=== PATIENT | male | born 1965 | race Caucasian/White ===

== ENCOUNTER 2020-06-22 02:49 | Observation (INO) | payer OTHER ==
[2020-06-22] MEDS ORDERED: Sodium Chloride 0.9% 2.5 ML Syringe FLUSH PRN (02:59)
[2020-06-22] MEDS ORDERED: Sodium Chloride 0.9% 10 ML Syringe FLUSH PRN (02:59)
--- NOTE | 2020-06-22 03:02 | EDM.PDOC ---
ED HPI GENERAL MEDICAL PROBLEM - General Chief Complaint: Chest Pain Stated Complaint: TROUBLE BREATHING Time Seen by Provider: 06/22/20 02:52 - History of Present Illness INITIAL COMMENTS - FREE TEXT/NARRATIVE: History of present illness: [] Patient left hip replacement May 23 of this year. The last 2 to 3 days in rehab he is noticed a little bit of discomfort in his left chest. This morning just prior to arrival he was awakened by pain is more sharp and worse with breathing. It is in his left chest. The patient is a non-smoker with no history of thromboembolic disease. After he went home from the hip replacement they ceased his Lovenox prophylaxis but he is on an aspirin daily. Patient has no leg swelling. Review of systems: As per history of present illness and below otherwise all systems reviewed and negative. Past medical history: As per history of present illness and as reviewed below otherwise noncontributory. Surgical history: As per history of present illness and as reviewed below otherwise n oncontributory. Social history: No reported history of drug or alcohol abuse. Family history: As per history of present illness and as reviewed below otherwise noncontributory. Physical exam: Constitutional - well developed, well-nourished and in no acute distress HEENT - normocephalic, no evidence of trauma - external nose and mouth normal - no mass in neck and no JVD - mucosae moist EYES - full EOM, PERRL, no icterus - no evidence of inflammation, injection, or drainage Respiratory - no respiratory distress, equal bilateral expansion, lungs clear to auscultation and no abnormal lung sounds Cardiovascular - Regular Rhythm with S1 and S2 appreciated and no murmur, gallop or rub. GI - abdomen soft without distension or organomegaly - normal bowel sounds - no guard or rebound Musculoskeletal no gross deformity of long bones or joints - no tenderness, swelling or edema Neurologic - Alert and oriented times four - CN II-XII grossly intact - motor sensory and coordination symmetrically normal Psychiatric - appropriate mood and affect with normal thought content Hematologic - No petechiae or purpura - mucosa appropriate color and sclera not pale - normal nail bed color and refill Integument - no rash or evidence of trauma - normal turgor Diagnostics: [] Therapeutics: [] Impression: [] Plan: [] Definitive disposition and diagnosis as appropriate pending reevaluation and review of above. Left Trunk Pain Score (Numeric/FACES): 6 - Related Data Allergies Allergy/AdvReac Type Severity Reaction Status Date / Time Penicillins Allergy Rash Verified 06/22/20 02:53 Home Meds: Home Meds Lisinopril 20 mg PO QAM 01/30/16 [History] metFORMIN [Glucophage] 500 mg PO BIDMEALS 09/17/18 [History] amLODIPine Besylate [Amlodipine Besylate] 5 mg PO DAILY MDD 5mg 06/22/20 [History] hydroCHLOROthiazide [Hydrochlorothiazide] 25 mg PO DAILY MDD 25mg 06/22/20 [History] Past Medical History HEENT History: Reports: Other (See Below) Other HEENT History: uses glasses for driving Cardiovascular History: Reports: Hypertension Respiratory History: Reports: None Gastrointestinal History: Reports: Other (See Below) Other Gastrointestinal History: Gilbert's syndrome Genitourinary History: Reports: None Musculoskeletal History: Reports: Arthritis Other Musculoskeletal History: hx of dislocated shoulder x5 Neurological History: Reports: None Psychiatric History: Reports: None Endocrine/Metabolic History: Reports: Diabetes, Type II, Obesity/BMI 30+ Hematologic History: Reports: None Immunologic History: Reports: None Oncologic (Cancer) History: Reports: None Dermatologic History: Reports: None - Infectious Disease History Infectious Disease History: Reports: Chicken Pox, Measles - Past Surgical History GI Surgical History: Reports: Cholecystectomy, Hernia, Abdominal Other GI Surgeries/Procedures: Ventral Hernia repair Musculoskeletal Surgical History: Reports: Other (See Below) Other Musculoskeletal Surgeries/Procedures:: I&D of abscess on shoulder Social & Family History - Family History Oncologic: Reports: Breast, Ovarian - Caffeine Use Caffeine Use: Reports: Coffee, Soda ED ROS GENERAL - Review of Systems Review Of Systems: Comprehensive ROS is negative, except as noted in HPI. ED EXAM, GENERAL - Physical Exam Exam: See Below Free Text/Narrative:: My physical exam is in the HPI #1 Interpretation EKG Interpretation Comments: EKG done at 0304 sinus rhythm heart rate 92. GA interval 155 QT duration 451. Roscoe -21. QRS had late transition in the precordium. Impression no acute injury Course - Vital Signs Text/Narrative:: 0340 hours chest x-ray is unremarkable. There is poor inspiratory result compared to the earlier chest x-ray in April no significant change. [address] scan was not diagnostic because the arteries were not well opacified. However the radiologist felt like that was because of a subclavian occlusion. The patient has no symptoms in the right arm. Before I move the IV and do the repeat study and give him another contrast burden I am going to perform an ultrasound of the right upper extremity and both lower extremities looking for possible source of PE. 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 Discussed with Dr. Lincoln and she agreed to put the patient in knobs and do a VQ scan later that day. Last Recorded V/S: Last Vital Signs Temp 36.6 C 06/22/20 02:54 Pulse 82 06/22/20 06:09 Resp 19 06/22/20 06:09 BP 130/72 06/22/20 06:09 Pulse Ox 97 06/22/20 06:09 - Orders/Labs/Meds Orders: Active Orders 24 hr Category Date Time Status Admission Status [Patient Status] [ADT] Stat ADT 06/22/20 06:53 Active EKG Documentation Completion [RC] AM Care 06/22/20 02:59 Active Ang Chest [CT] Stat Exams 06/22/20 06:32 Stop Req Lung Vent Perfusion [NM] Stat Exams 06/22/20 06:43 Ordered Venous Doppler Lwr Ext Bi [US] Stat Exams 06/22/20 05:15 Taken Venous Doppler Upr Ext Rt [US] Stat Exams 06/22/20 05:15 Taken CORONAVIRUS COVID-19 MONI [MOLEC] Stat Lab 06/22/20 06:46 Ordered Sodium Chloride 0.9% [Normal Saline] 1,000 ml Med 06/22/20 06:35 Active IV .BOLUS Sodium Chloride 0.9% [Saline Flush] Med 06/22/20 02:59 Active 10 ml FLUSH ASDIRECTED PRN Sodium Chloride 0.9% [Saline Flush] Med 06/22/20 02:59 Active 2.5 ml FLUSH ASDIRECTED PRN Saline Lock Insert [OM.PC] Stat Oth 06/22/20 02:59 Ordered Medication Orders Sodium Chloride (Normal Saline) 1,000 mls @ 999 mls/hr IV .BOLUS ONE Stop: 06/22/20 07:35 Last Admin: 06/22/20 06:37 Dose: 999 mls/hr Documented by: SERGE Sodium Chloride (Sodium Chloride 0.9% 10 Ml Syringe) 10 ml FLUSH ASDIRECTED PRN PRN Reason: Keep Vein Open Last Admin: 06/22/20 03:15 Dose: 10 ml Documented by: SERGE Sodium Chloride (Sodium Chloride 0.9% 2.5 Ml Syringe) 2.5 ml FLUSH ASDIRECTED PRN PRN Reason: Keep Vein Open Last Admin: 06/22/20 03:13 Dose: 2.5 ml Documented by: SERGE Labs: Laboratory Tests 06/22/20 06/22/20 06/22/20 Range/Units 03:10 03:10 03:10 WBC 9.35 (4.0-11.0) K/uL RBC 3.85 L (4.50-5.90) M/uL Hgb 11.7 L (13.0-17.0) g/dL Hct 35.3 L (38.0-50.0) % MCV 91.7 (80.0-98.0) fL MCH 30.4 (27.0-32.0) pg MCHC 33.1 (31.0-37.0) g/dL RDW Std Deviation 43.9 (28.0-62.0) fl RDW Coeff of Tonia 13 (11.0-15.0) % Plt Count 286 (150-400) K/uL MPV 9.80 (7.40-12.00) fL Neut % (Auto) 57.9 (48.0-80.0) % Lymph % (Auto) 28.3 (16.0-40.0) % [place] % (Auto) 10.2 (0.0-15.0) % Eos % (Auto) 3.1 (0.0-7.0) % Baso % (Auto) 0.5 (0.0-1.5) % Neut # (Auto) 5.4 (1.4-5.7) K/uL Lymph # (Auto) 2.7 H (0.6-2.4) K/uL [place] # (Auto) 1.0 H (0.0-0.8) K/uL Eos # (Auto) 0.3 (0.0-0.7) K/uL Baso # (Auto) 0.1 (0.0-0.1) K/uL Nucleated RBC % 0.0 /100WBC Nucleated RBCs # 0 K/uL APTT 24.1 (18.6-31.3) SEC Sodium 138 (136-148) mmol/L Potassium 3.8 (3.5-5.1) mmol/L Chloride 99 (98-107) mmol/L Carbon Dioxide 26.2 (21.0-32.0) mmol/L BUN 17 (7.0-18.0) mg/dL Creatinine 1.4 H (0.8-1.3) mg/dL Est Cr Clr Drug Dosing 61.02 mL/min Estimated GFR (MDRD) 53.0 ml/min Glucose 150 H (74-106) mg/dL Calcium 8.8 (8.5-10.1) mg/dL Total Bilirubin 1.2 H (0.2-1.0) mg/dL AST 28 (15-37) IU/L ALT 56 (14-63) IU/L Alkaline Phosphatase 120 H (46-116) U/L Troponin I < 0.050 (0.000-0.056) ng/mL Total Protein 8.0 (6.4-8.2) g/dL Albumin 3.8 (3.4-5.0) g/dL Globulin 4.2 H (2.6-4.0) g/dL Albumin/Globulin Ratio 0.9 (0.9-1.6) 06/22/20 Range/Units 06:12 WBC (4.0-11.0) K/uL RBC (4.50-5.90) M/uL Hgb (13.0-17.0) g/dL Hct (38.0-50.0) % MCV (80.0-98.0) fL MCH (27.0-32.0) pg MCHC (31.0-37.0) g/dL RDW Std Deviation (28.0-62.0) fl RDW Coeff of Tonia (11.0-15.0) % Plt Count (150-400) K/uL MPV (7.40-12.00) fL Neut % (Auto) (48.0-80.0) % Lymph % (Auto) (16.0-40.0) % [place] % (Auto) (0.0-15.0) % Eos % (Auto) (0.0-7.0) % Baso % (Auto) (0.0-1.5) % Neut # (Auto) (1.4-5.7) K/uL Lymph # (Auto) (0.6-2.4) K/uL [place] # (Auto) (0.0-0.8) K/uL Eos # (Auto) (0.0-0.7) K/uL Baso # (Auto) (0.0-0.1) K/uL Nucleated RBC % /100WBC Nucleated RBCs # K/uL APTT (18.6-31.3) SEC Sodium (136-148) mmol/L Potassium (3.5-5.1) mmol/L Chloride (98-107) mmol/L Carbon Dioxide (21.0-32.0) mmol/L BUN (7.0-18.0) mg/dL Creatinine (0.8-1.3) mg/dL Est Cr Clr Drug Dosing mL/min Estimated GFR (MDRD) ml/min Glucose (74-106) mg/dL Calcium (8.5-10.1) mg/dL Total Bilirubin (0.2-1.0) mg/dL AST (15-37) IU/L ALT (14-63) IU/L Alkaline Phosphatase (46-116) U/L Troponin I < 0.050 (0.000-0.056) ng/mL Total Protein (6.4-8.2) g/dL Albumin (3.4-5.0) g/dL Globulin (2.6-4.0) g/dL Albumin/Globulin Ratio (0.9-1.6) Meds: Medications Generic Name Dose Route Start Last Admin Trade Name Freq PRN Reason Stop Dose Admin Sodium Chloride 1,000 mls @ 999 mls/hr 06/22/20 06:35 06/22/20 06:37 Normal Saline IV 06/22/20 07:35 999 mls/hr .BOLUS ONE Administration Sodium Chloride 10 ml 06/22/20 02:59 06/22/20 03:15 Sodium Chloride 0.9% 10 Ml Syringe FLUSH 10 ml ASDIRECTED PRN Administration Keep Vein Open Sodium Chloride 2.5 ml 06/22/20 02:59 06/22/20 03:13 Sodium Chloride 0.9% 2.5 Ml Syringe FLUSH 2.5 ml ASDIRECTED PRN Administration Keep Vein Open Discontinued Medications Generic Name Dose Route Start Last Admin Trade Name Freq PRN Reason Stop Dose Admin Enoxaparin Sodium 40 mg 06/22/20 06:47 Enoxaparin 40 Mg/0.4 Ml Syringe SUBCUT 06/22/20 06:48 ONETIME ONE Iopamidol 100 ml 06/22/20 04:16 06/22/20 04:27 Iopamidol 755 Mg/Ml 100 Ml Bottle IVPUSH 06/22/20 04:17 100 ml ONETIME ONE Administration Ketorolac Tromethamine 15 mg 06/22/20 03:44 06/22/20 03:55 Ketorolac 30 Mg/Ml Sdv IVPUSH 06/22/20 03:45 15 mg ONETIME ONE Administration Departure - Departure Time of Disposition: 06:55 Disposition: Refer to Observation Condition: Good Clinical Impression: Chest pain - Discharge Information Referrals: Arnie Farfan MD [Primary Care Provider] - Forms: ED Department Discharge Sepsis Event Note (ED) - Evaluation Sepsis Screening Result: No Definite Risk - Focused Exam Vital Signs: Vital Signs Temp Pulse Resp BP Pulse Ox 06/22/20 06:09 82 19 130/72 97 06/22/20 04:58 86 17 126/72 96 06/22/20 04:26 90 19 136/75 97 06/22/20 03:36 88 18 129/76 96 06/22/20 02:54 36.6 C 100 20 147/80 H 98 - My Orders Last 24 Hours: My Active Orders 06/22/20 02:59 EKG Documentation Completion [RC] AM Sodium Chloride 0.9% [Saline Flush] 10 ml FLUSH ASDIRECTED PRN Sodium Chloride 0.9% [Saline Flush] 2.5 ml FLUSH ASDIRECTED PRN Saline Lock Insert [OM.PC] Stat 06/22/20 05:15 Venous Doppler Lwr Ext Bi [US] Stat Venous Doppler Upr Ext Rt [US] Stat 06/22/20 06:32 Ang Chest [CT] Stat 06/22/20 06:35 Sodium Chloride 0.9% [Normal Saline] 1,000 ml IV .BOLUS 06/22/20 06:43 Lung Vent Perfusion [NM] Stat 06/22/20 06:46 CORONAVIRUS COVID-19 MONI [MOLEC] Stat 06/22/20 06:53 Admission Status [Patient Status] [ADT] Stat - Assessment/Plan Last 24 Hours: My Active Orders 06/22/20 02:59 EKG Documentation Completion [RC] AM Sodium Chloride 0.9% [Saline Flush] 10 ml FLUSH ASDIRECTED PRN Sodium Chloride 0.9% [Saline Flush] 2.5 ml FLUSH ASDIRECTED PRN Saline Lock Insert [OM.PC] Stat 06/22/20 05:15 Venous Doppler Lwr Ext Bi [US] Stat Venous Doppler Upr Ext Rt [US] Stat 06/22/20 06:32 Ang Chest [CT] Stat 06/22/20 06:35 Sodium Chloride 0.9% [Normal Saline] 1,000 ml IV .BOLUS 06/22/20 06:43 Lung Vent Perfusion [NM] Stat 06/22/20 06:46 CORONAVIRUS COVID-19 MONI [MOLEC] Stat 06/22/20 06:53 Admission Status [Patient Status] [ADT] Stat
[2020-06-22 03:42] LABS: BLOOD UREA NITROGEN,BUN 17 mg/dL (7.0-18.0); CARBON DIOXIDE,CO2 26.2 mmol/L (21.0-32.0); CHLORIDE,CL 99 mmol/L (98-107); GLUCOSE RANDOM 150 mg/dL (74-106); POTASSIUM,K 3.8 mmol/L (3.5-5.1); SODIUM,NA 138 mmol/L (136-148)
[2020-06-22] MEDS ORDERED: Ketorolac 30 MG/ML SDV IVPUSH ONE (03:44)
--- NOTE | 2020-06-22 04:00 | CR ---
Indication: Chest pain Technique: Chest 1 view Comparison: Chest x-ray 04/19/2020 Findings/Impression: Cardiovascular and mediastinum: Heart size and vasculature are normal in caliber and appearance. Lungs and pleural space: Lungs are clear. No sign of infiltrate or mass. No sign of pleural effusion. No pneumothorax. Bones and soft tissues: Left glenohumeral osteoarthritis. Dictated by Robinson Guerrero MD @ 06/22/2020 3:59:[address] Robinson Guerrero @ Jun 22 2020 3:59AM
[2020-06-22] MEDS ORDERED: Iopamidol 755 Mg/ML 100 ML Bottle IVPUSH ONE (04:16)
--- NOTE | 2020-06-22 05:08 | CT ---
INDICATION: Chest pain TECHNIQUE: CT chest PE was acquired with 75 cc Isovue 370 intravenous contrast. COMPARISON: None. FINDINGS: Heart and vasculature: Nondiagnostic examination secondary to inadequate opacification of the pulmonary artery. Note is made of an injection in the right arm with high-grade right subclavian stenosis versus occlusion with right chest wall collaterals. No thoracic aortic aneurysm. No pericardial effusion. Lungs and pleural: Trace left pleural effusion. Mild dependent atelectasis left lower lobe. Minimal areas of discoid atelectasis. Lymph nodes/mediastinum: No mediastinal, hilar, or axillary adenopathy. Chest wall: No masses. Upper abdomen: Status post cholecystectomy. Bones: Left glenohumeral osteoarthritis. Diffuse idiopathic skeletal hyperostosis. IMPRESSION: 1. Nondiagnostic evaluation for the detection of pulmonary emboli. This is secondary to inadequate opacification of the pulmonary artery. Of note, injection was performed in the right arm with a high-grade stenosis versus occlusion of the right subclavian vein which likely contributes to inadequate opacification. If a repeat study is considered, injection should be performed through the left arm. 2. Trace left pleural effusion with dependent atelectasis. Please note that all CT scans at this facility use dose modulation, iterative reconstruction, and/or weight-based dosing when appropriate to reduce radiation dose to as low as reasonably achievable. Dictated by Robinson Guerrero MD @ 06/22/2020 5:07:[address] Robinson Guerrero @ Jun 22 2020 5:07AM
[2020-06-22] MEDS ORDERED: Sodium Chloride 0.9% 1,000 ML IV ONE (06:35)
[2020-06-22] MEDS ORDERED: Enoxaparin 40 MG/0.4 ML Syringe SUBCUT ONE (06:47)
--- NOTE | 2020-06-22 07:15 | US ---
HISTORY: Possible abnormality of the right subclavian vein on chest CT. Recent hip surgery. TECHNIQUE: Ultrasound of the right upper extremity deep veins using luciano-scale, color Doppler, and spectral Doppler. COMPARISON: None. FINDINGS: Visualized portion of the right subclavian vein is patent. Axillary vein is patent and compressible. Brachial vein is patent incompressible. Radial vein is patent and compressible. Cephalic vein is patent and compressible. IMPRESSION: No right upper extremity DVT. Visualized right subclavian vein is patent. Dictated by Melo Rodriguez MD @ 06/22/2020 7:12:[address] Melo Rodriguez @ Jun 22 2020 7:12AM
--- NOTE | 2020-06-22 07:17 | US ---
HISTORY: Chest pain. Recent hip surgery. Nondiagnostic chest CT. TECHNIQUE: Ultrasound of the right and left lower extremity deep veins using luciaon-scale, color Doppler, and spectral Doppler. COMPARISON: None. FINDINGS: Right: Common femoral, femoral, and popliteal veins are patent and compressible with normal response to augmentation. Anterior tibial vein and posterior tibial vein are patent. - Left: Common femoral, femoral, and popliteal veins are patent and compressible with normal response to augmentation. Anterior tibial vein and posterior tibial vein are patent. IMPRESSION: No right or left lower extremity DVT. Dictated by Melo Rodriguez MD @ 06/22/2020 7:14:[address] Melo Rodriguez @ Jun 22 2020 7:14AM
[2020-06-22] MEDS ORDERED: Glucagon,Human Recombinant 1 MG Vial IM PRN (09:29)
[2020-06-22] MEDS ORDERED: 50% Dextrose in Water 50 ML Syringe IV PRN (09:29)
--- NOTE | 2020-06-22 09:30 | PCM.HP.2 ---
<Elliott Velez - Last Filed: 06/22/20 12:16> H&P History of Present Illness - General Date of Service: 06/22/20 Admit Problem/Dx: Admission Diagnosis/Problem Admission Diagnosis/Problem Chest pain Source of Information: Patient History Limitations: Reports: No Limitations - History of Present Illness Initial Comments - Free Text/Narative: Patient is a 54 male with significant past medical history of morbid obesity, hypertension, type 2 diabetes and is status post hip total replacement 4 weeks prior presenting to the ED for 2 to 3 days of left-sided chest discomfort. Endorsed to the ER physician pain waking up in the middle the night, worse with breathing and is exclusively in his left chest. Patient is is a non-smoker and does not have a history of thromboembolic disease. Patient has been in physical rehab for his left total hip replacement. Was discontinued on his Lovenox but is still currently on aspirin daily. ED course: Chest x-ray unremarkable., atelectasis noted in left lower lungs CT scan chest with angiography: Arteries not well opacified nondiagnostic secondary to subclavian occlusion. Concerns about repeat contrast brought up secondary to BREE of 1.4. Was advised to possibly have a VQ scan. Initial troponin negative. EKG: Normal sinus rhythm. Venous Doppler study: No right upper extremity DVT. Visualized right subclavian vein is patent Venous Doppler study lower extremity: No acute DVT is appreciated. Patient given a dose of Toradol for pain control and IV fluids. Admitted to observation. Bedside: Endorses similar story as above. Mentions discomfort is exclusively in the left side of the chest. Has been compliant with medication at home. Has not been using his incentive spirometry as recommended by orthopedics.. She currently denies any dyspnea, shortness of breath at rest fevers, chills. Left Trunk Pain Score (Numeric/FACES): 6 - Related Data Allergies/Adverse Reactions: Allergies Allergy/AdvReac Type Severity Reaction Status Date / Time Penicillins Allergy Rash Verified 06/22/20 09:21 Home Medications: Home Meds Lisinopril 40 mg PO QAM 01/30/16 [History] Ezetimibe 10 mg PO DAILY 06/22/20 [History] amLODIPine [Norvasc] 5 mg PO DAILY 06/22/20 [History] hydroCHLOROthiazide [Hydrochlorothiazide] 25 mg PO DAILY 06/22/20 [History] Past Medical History HEENT History: Reports: Other (See Below) Other HEENT History: uses glasses for driving Cardiovascular History: Reports: Hypertension Respiratory History: Reports: None Gastrointestinal History: Reports: Other (See Below) Other Gastrointestinal History: Gilbert's syndrome Genitourinary History: Reports: None Musculoskeletal History: Reports: Arthritis Other Musculoskeletal History: hx of dislocated shoulder x5 Neurological History: Reports: None Psychiatric History: Reports: None Endocrine/Metabolic History: Reports: Diabetes, Type II, Obesity/BMI 30+ Hematologic History: Reports: None Immunologic History: Reports: None Oncologic (Cancer) History: Reports: None Dermatologic History: Reports: None - Infectious Disease History Infectious Disease History: Reports: Chicken Pox, Measles - Past Surgical History Head Surgeries/Procedures: Reports: None HEENT Surgical History: Reports: None Cardiovascular Surgical History: Reports: None Respiratory Surgical History: Reports: None GI Surgical History: Reports: Cholecystectomy, Hernia, Abdominal Other GI Surgeries/Procedures: Ventral Hernia repair Male Surgical History: Reports: None Endocrine Surgical History: Reports: None Neurological Surgical History: Reports: None Musculoskeletal Surgical History: Reports: Hip Replacement, Other (See Below) Other Musculoskeletal Surgeries/Procedures:: I&D of abscess on shoulder Oncologic Surgical History: Reports: None Dermatological Surgical History: Reports: None Social & Family History - Family History Oncologic: Reports: Breast, Ovarian - Tobacco Use Tobacco Use Status *Q: Never Tobacco User Second Hand Smoke Exposure: No - Caffeine Use Caffeine Use: Reports: Coffee - Recreational Drug Use Recreational Drug Use: No H&P Review of Systems - Review of Systems: Review Of Systems: See Below General: Denies: Fever, Chills, Malaise HEENT: Reports: No Symptoms Pulmonary: Reports: No Symptoms Cardiovascular: Reports: Chest Pain, Dyspnea on Exertion. Denies: Edema, Lightheadedness Gastrointestinal: Reports: No Symptoms Genitourinary: Reports: No Symptoms Musculoskeletal: Denies: Joint Pain Skin: Reports: No Symptoms Neurological: Reports: No Symptoms Hematologic/Lymphatic: Reports: No Symptoms Exam - Exam Exam: See Below - Vital Signs Vital Signs: Last Vital Signs Temp 97.6 F 06/22/20 09:06 Pulse 85 06/22/20 09:06 Resp 16 06/22/20 09:06 BP 128/76 06/22/20 09:06 Pulse Ox 99 06/22/20 09:06 Weight: 144.696 kg - Exam Quality Assessment: No: Supplemental Oxygen General: Alert, Oriented HEENT: EACs Clear, EOMI Neck: Supple, Trachea Midline Lungs: Clear to Auscultation, Normal Respiratory Effort Cardiovascular: Regular Rate, Regular Rhythm GI/Abdominal Exam: Soft, Non-Tender Extremities: Normal Inspection Neurological: Cranial Nerves Intact Neuro Extensive - Mental Status: Alert, Normal Mood/Affect Psychiatric: Alert Physical Exam Comments:: obese - Patient Data Lab Results Last 24 hrs: Laboratory Results - last 24 hr 06/22/20 06/22/20 06/22/20 Range/Units 03:10 03:10 03:10 WBC 9.35 (4.0-11.0) K/uL RBC 3.85 L (4.50-5.90) M/uL Hgb 11.7 L (13.0-17.0) g/dL Hct 35.3 L (38.0-50.0) % MCV 91.7 (80.0-98.0) fL MCH 30.4 (27.0-32.0) pg MCHC 33.1 (31.0-37.0) g/dL RDW Std Deviation 43.9 (28.0-62.0) fl RDW Coeff of Tonia 13 (11.0-15.0) % Plt Count 286 (150-400) K/uL MPV 9.80 (7.40-12.00) fL Neut % (Auto) 57.9 (48.0-80.0) % Lymph % (Auto) 28.3 (16.0-40.0) % Isabela % (Auto) 10.2 (0.0-15.0) % Eos % (Auto) 3.1 (0.0-7.0) % Baso % (Auto) 0.5 (0.0-1.5) % Neut # (Auto) 5.4 (1.4-5.7) K/uL Lymph # (Auto) 2.7 H (0.6-2.4) K/uL Isabela # (Auto) 1.0 H (0.0-0.8) K/uL Eos # (Auto) 0.3 (0.0-0.7) K/uL Baso # (Auto) 0.1 (0.0-0.1) K/uL Nucleated RBC % 0.0 /100WBC Nucleated RBCs # 0 K/uL APTT 24.1 (18.6-31.3) SEC Sodium 138 (136-148) mmol/L Potassium 3.8 (3.5-5.1) mmol/L Chloride 99 (98-107) mmol/L Carbon Dioxide 26.2 (21.0-32.0) mmol/L BUN 17 (7.0-18.0) mg/dL Creatinine 1.4 H (0.8-1.3) mg/dL Est Cr Clr Drug Dosing 61.02 mL/min Estimated GFR (MDRD) 53.0 ml/min Glucose 150 H (74-106) mg/dL Calcium 8.8 (8.5-10.1) mg/dL Total Bilirubin 1.2 H (0.2-1.0) mg/dL AST 28 (15-37) IU/L ALT 56 (14-63) IU/L Alkaline Phosphatase 120 H (46-116) U/L Troponin I < 0.050 (0.000-0.056) ng/mL Total Protein 8.0 (6.4-8.2) g/dL Albumin 3.8 (3.4-5.0) g/dL Globulin 4.2 H (2.6-4.0) g/dL Albumin/Globulin Ratio 0.9 (0.9-1.6) SARS-CoV-2 RNA (MONI) (NEGATIVE) 06/22/20 06/22/20 Range/Units 06:12 06:50 WBC (4.0-11.0) K/uL RBC (4.50-5.90) M/uL Hgb (13.0-17.0) g/dL Hct (38.0-50.0) % MCV (80.0-98.0) fL MCH (27.0-32.0) pg MCHC (31.0-37.0) g/dL RDW Std Deviation (28.0-62.0) fl RDW Coeff of Tonia (11.0-15.0) % Plt Count (150-400) K/uL MPV (7.40-12.00) fL Neut % (Auto) (48.0-80.0) % Lymph % (Auto) (16.0-40.0) % Isabela % (Auto) (0.0-15.0) % Eos % (Auto) (0.0-7.0) % Baso % (Auto) (0.0-1.5) % Neut # (Auto) (1.4-5.7) K/uL Lymph # (Auto) (0.6-2.4) K/uL Isabela # (Auto) (0.0-0.8) K/uL Eos # (Auto) (0.0-0.7) K/uL Baso # (Auto) (0.0-0.1) K/uL Nucleated RBC % /100WBC Nucleated RBCs # K/uL APTT (18.6-31.3) SEC Sodium (136-148) mmol/L Potassium (3.5-5.1) mmol/L Chloride (98-107) mmol/L Carbon Dioxide (21.0-32.0) mmol/L BUN (7.0-18.0) mg/dL Creatinine (0.8-1.3) mg/dL Est Cr Clr Drug Dosing mL/min Estimated GFR (MDRD) ml/min Glucose (74-106) mg/dL Calcium (8.5-10.1) mg/dL Total Bilirubin (0.2-1.0) mg/dL AST (15-37) IU/L ALT (14-63) IU/L Alkaline Phosphatase (46-116) U/L Troponin I < 0.050 (0.000-0.056) ng/mL Total Protein (6.4-8.2) g/dL Albumin (3.4-5.0) g/dL Globulin (2.6-4.0) g/dL Albumin/Globulin Ratio (0.9-1.6) SARS-CoV-2 RNA (MONI) NEGATIVE (NEGATIVE) Result Diagrams: 06/22/20 03:10 06/22/20 03:10 Sepsis Event Note - Evaluation Sepsis Screening Result: No Definite Risk - Focused Exam Vital Signs: Vital Signs Temp Pulse Pulse Resp BP Pulse Ox 06/22/20 09:06 97.6 F 85 16 128/76 99 06/22/20 08:27 82 16 133/81 97 06/22/20 07:54 88 16 128/82 96 06/22/20 07:23 81 16 129/72 95 06/22/20 06:09 82 19 130/72 97 06/22/20 04:58 86 17 126/72 96 06/22/20 04:26 90 19 136/75 97 06/22/20 03:36 88 18 129/76 96 06/22/20 02:54 97.8 F 100 20 147/80 H 98 - Problem List (1) Diabetes SNOMED Code(s): 17036534 ICD Code: E11.9 - TYPE 2 DIABETES MELLITUS WITHOUT COMPLICATIONS Status: Ac paulo (2) Chest pain SNOMED Code(s): 84565131 ICD Code: R07.9 - CHEST PAIN, UNSPECIFIED Status: Acute Problem List Initiated/Reviewed/Updated: Yes Orders Last 24hrs: Active Orders 24 hr Category Date Time Status Admission Status [Patient Status] [ADT] Stat ADT 06/22/20 06:53 Active Blood Glucose Check, Bedside [RC] TIDMEALS Care 06/22/20 09:27 Ordered EKG Documentation Completion [RC] AM Care 06/22/20 02:59 Active Oxygen Therapy [RC] PRN Care 06/22/20 09:27 Ordered VTE/DVT Education [RC] PER UNIT ROUTINE Care 06/22/20 09:27 Ordered Citizen Of [place] [employer] Diet [DIET] Diet 06/22/20 Lunch Ordered Lung Vent Perfusion [NM] Stat Exams 06/22/20 06:43 Ordered Dextrose 50% in Water Med 06/22/20 09:29 Ordered 50 ml IV ASDIRECTED PRN Ezetimibe [Zetia] Med 06/23/20 09:00 Ordered 10 mg PO DAILY Glucagon,Human Recombinant [GlucaGen] Med 06/22/20 09:29 Ordered 1 mg IM ASDIRECTED PRN Insulin Aspart [NovoLOG] Med 06/22/20 11:30 Ordered See Protocol SUBCUT TIDAC Sodium Chloride 0.9% [Saline Flush] Med 06/22/20 02:59 Active 10 ml FLUSH ASDIRECTED PRN Sodium Chloride 0.9% [Saline Flush] Med 06/22/20 02:59 Active 2.5 ml FLUSH ASDIRECTED PRN amLODIPine [Norvasc] Med 06/23/20 09:00 Ordered 5 mg PO DAILY Saline Lock Insert [OM.PC] Stat Oth 06/22/20 02:59 Ordered Resuscitation Status Routine Resus Stat 06/22/20 09:27 Ordered Medication Orders Dextrose/Water (50% Dextrose In Water 50 Ml Syringe) 50 ml IV ASDIRECTED PRN PRN Reason: Hypoglycemia Glucagon (Glucagon,Human Recombinant 1 Mg Vial) 1 mg IM ASDIRECTED PRN PRN Reason: Hypoglycemia Insulin Aspart (Insulin Aspart 100 Units/Ml 3 Ml Pen) 0 unit SUBCUT TIDAC TIGIST; Protocol Sodium Chloride (Sodium Chloride 0.9% 10 Ml Syringe) 10 ml FLUSH ASDIRECTED PRN PRN Reason: Keep Vein Open Last Admin: 06/22/20 03:15 Dose: 10 ml Documented by: SERGE Sodium Chloride (Sodium Chloride 0.9% 2.5 Ml Syringe) 2.5 ml FLUSH ASDIRECTED PRN PRN Reason: Keep Vein Open Last Admin: 06/22/20 03:13 Dose: 2.5 ml Documented by: SERGE Assessment/Plan Comment:: Assessment: 1. Chest pain/ACS rule out, 2. Chest pain status post left total hip arthroplasty; evaluate for PE 3. Past medical history: Hypertension, diabetes, hyperlipidemia, morbid obesity Plan Admit to observation. Full code. I's and O's per routine vitals per routine 1. Chest pain/ACS rule out: Troponin x3 -.; EKG within normal limits Labs otherwise unremarkable CTA unfortunately was nondiagnostic; VQ scan will be ordered this afternoon; if negative may consider discharge; continue to monitor. Patient is on room air: saturating well. Continue ASA ; received Lovenox in ED 2. BREE: Avoid nephrotoxic medications/IV contrast; continue to monitor recheck in outpatient setting; if VQ scan nondiagnostic or high probability may consider repeat CTAs post fluid resuscitation Advised to hold Metformin till Saturday due to BREE and concners for L.acidosis; pt understood and agreed; SSI while inpatient 3. Past medical history: Diabetes; sliding scale insulin plus 3 times daily Accu-Cheks Hypertension: Hold lisinopril until BREE resolved; monitor vitals Continue other home medications <Aida Lincoln - Last Filed: 06/23/20 21:36> H&P History of Present Illness - General Admit Problem/Dx: Admission Diagnosis/Problem Admission Diagnosis/Problem Chest pain Exam - Vital Signs Vital Signs: Last Vital Signs Temp 35.8 C L 06/22/20 14:00 Pulse 80 06/22/20 14:00 Resp 16 06/22/20 14:00 BP 121/70 06/22/20 14:00 Pulse Ox 96 06/22/20 14:00 - Patient Data Result Diagrams: 06/22/20 03:10 06/22/20 03:10 Assessment/Plan Comment:: I have seen and evaluated the patient and agree with the residents note unless specified in my note
[2020-06-22] MEDS ORDERED: Insulin Aspart 100 Units/ML 3 ML Pen SUBCUT SCH (11:30)
--- NOTE | 2020-06-22 13:27 | NM ---
INDICATION: Hip surgery 4 weeks ago. Left-sided chest pain with deep breathing. No history of pulmonary emboli. TECHNIQUE: 5.3 mCi Tc-99m labeled MAA. Only perfusion images were acquired. Ventilatory images were not acquired. COMPARISON: Correlation is made with a venous ultrasound evaluation of lower extremity veins and right upper extremity venous ultrasound. Correlation is made with a CT angiogram June 22, 2020 (nondiagnostic secondary to poor opacification of the pulmonary showed tree). Correlation is made with a chest x-ray June 22, 2020. FINDINGS: Perfusion images demonstrate mildly decreased activity in the upper lobes likely soft tissue overlay bilaterally. Peripheral defect right mid lung laterally. Non segmental defect mid left lung likely related to the fissure. IMPRESSION : Although not completely normal, these perfusion images are not convincing for pulmonary emboli although please note the lack of a ventilatory study may decrease the specificity of the study. The clinical history indicates left-sided chest pain. There is no convincing evidence for left-sided pulmonary emboli. Dictated by Juanjo Barillas MD @ 06/22/2020 1:27:[address] Juanjo Barillas @ Jun 22 2020 1:27PM
[2020-06-23 07:21] VITALS: BP 121/70; PULSE 80
[2020-06-23] MEDS ORDERED: amLODIPine 5 MG Tab PO SCH (09:00)
[2020-06-23] MEDS ORDERED: Ezetimibe 10 MG Tab PO SCH (09:00)
== END 2020-06-22 14:45 | disposition home or self-care (01) ==
LOC: MW.ED 02:49 → MW.MS 06:53
PROVIDERS: ADMIT Student in an Organized Health Care Education/Training Program; ATTEND Student in an Organized Health Care Education/Training Program
DX: R07.89 Other chest pain (principal); E11.9 Type 2 diabetes mellitus without complications; I10 Essential (primary) hypertension; E78.5 Hyperlipidemia, unspecified; N17.9 Acute kidney failure, unspecified; E66.01 Morbid (severe) obesity due to excess calories; Z68.42 Body mass index [BMI] 45.0-49.9, adult; Z88.0 Allergy status to penicillin; Z79.899 Other long term (current) drug therapy; Z79.4 Long term (current) use of insulin; Z20.822 Contact with and (suspected) exposure to COVID-19; Z98.890 Other specified postprocedural states
CPT/HCPCS: 36415; 71045; 71275; 78580; 80053; 82947; 84484; 85025; 85730; 87635; 93005; 93970; 93971; 96372; 96374; 99285; A9540; G0378; J1650; J1885; J7030; Q9967; U0002

== ENCOUNTER 2020-11-24 20:16 | Emergency (ER) | payer BC ==
--- NOTE | 2020-11-25 00:10 | CR ---
INDICATION: COVID, shortness of breath TECHNIQUE: Chest one view COMPARISON: Chest x-ray 06/22/2020 FINDINGS: The heart is normal in size. The pulmonary vasculature is within normal limits. The lungs are clear without focal consolidation, pleural effusion or pneumothorax. The bones are unremarkable. IMPRESSION: No acute process. Dictated by Nilsa Blair MD @ 11/25/2020 12:10:20 AM (Electronically Signed)
--- NOTE | 2020-11-25 00:18 | EDM.PDOC ---
ED HPI GENERAL MEDICAL PROBLEM - General Chief Complaint: Respiratory Problem Stated Complaint: COVID SOB Time Seen by Provider: 11/24/20 23:11 - History of Present Illness INITIAL COMMENTS - FREE TEXT/NARRATIVE: HISTORY AND PHYSICAL: History of present illness: Is a 54-year-old gentleman with a history significant hypertension diabetes who presents ER today secondary to concerns about a low oxygen level at home with his pulse oximeter of 88%. Patient was diagnosed with coronavirus. Patient reports this is his second diagnosis of coronavirus and he has had a coronavirus vaccine x2 with [employer]. Patient also reports that he recently received the coronavirus antibody. Patient denies any recent fevers. Patient reports he has had cough and congestion. Patient has any vomiting or diarrhea. Patient has any dysuria, frequency, urgency, chest pain, abdominal pain. Patient reports that while he is sitting he is not short of breath however any kind of exertion or ambulation creates shortness of breath. Patient has any calf tenderness or swelling. Patient has any history of liver, lung, kidney problems. Patient has any history of CAD or heart disease. Review of systems: As per history of present illness and below otherwise all systems reviewed and negative. Past medical history: As per history of present illness and as reviewed below otherwise noncontributory. Surgical history: As per history of present illness and as reviewed below otherwise noncontributory. Social history: No reported history of drug abuse. Family history: As per history of present illness and as reviewed below otherwise non contributory. Physical exam: This patient was seen and evaluated during the 2019 SARS-CoV-2 novel coronavirus pandemic period. Community viral transmission is ongoing at time of this encounter and the emergency department is operating under pandemic response procedures. Constitutional: Patient is oriented to person, place, and time. Appears well- developed and well-nourished. No distress. HEENT: Moist mucous membranes Head: Normocephalic and atraumatic Eyes: Right eye exhibits no discharge. Left eye exhibits no discharge. No scleral icterus Neck: Normal range of motion. No tracheal deviation present. Cardiovascular: Normal rate and regular rhythm. Pulmonary: Effort normal, no respiratory distress. No wheezing rales or rhonchi Abdominal: No distention Musculoskeletal: Normal range of motion. No calf tenderness. No Homans' sign. Neurologic: Alert and oriented to person, place and time. Skin: [place], warm and dry. Psychiatric: Normal mood and affect. Behavior is normal. Judgment and thought content normal. Nursing note and vital signs have been reviewed Diagnostics: Chest Xray: Normal cardiac silhouette No infiltrates or effusions identified. No PTX No evidence of acute bony fracture. As interpreted by ER MD: Joe Pulse ox: 92 to 96% on room air Therapeutics: [] Assessment and plan: 54-year-old gentleman who presents ER today secondary to low oxygen reading at home with his pulse oximeter. Patient has a recent diagnosis of coronavirus. Patient is clinically hemodynamically stable here in the ED. Patient's chest x- ray is unremarkable and his oxygen level is 92 to 96% on room air. Patient is stable for discharge home at this time with instructions to continue the current plan of care and to continue monitoring his oxygen level as a been doing and return immediately with any concerns regarding low oxygen levels or increasing shortness of breath. Reassessment at the time of disposition demonstrates that the patient is in no acute distress. The patient has remained stable throughout the entire ED visit and is without objective evidence for acute process requiring urgent intervention or hospitalization. The patient is stable for discharge, counseling is provided as documented above, discussed symptomatic treatment and specific conditions for return. I have spoken with the patient/caregiver and discussed todays findings, in add ition to providing specific details for the plan of care. Questions are answered and there is agreement with the plan. Definitive disposition and diagnosis as appropriate pending reevaluation and rev iew of above. - Related Data Allergies Allergy/AdvReac Type Severity Reaction Status Date / Time Penicillins Allergy Rash Verified 11/24/20 22:23 Home Meds: Home Meds Lisinopril 40 mg PO QAM 01/30/16 [History] Ezetimibe 10 mg PO DAILY 06/22/20 [History] amLODIPine [Norvasc] 5 mg PO DAILY 06/22/20 [History] hydroCHLOROthiazide [Hydrochlorothiazide] 25 mg PO DAILY 06/22/20 [History] metFORMIN HCl [Metformin ER Gastric] 1,000 mg PO 11/24/20 [History] Past Medical History HEENT History: Reports: Impaired Vision, Other (See Below) Other HEENT History: uses glasses for driving Cardiovascular History: Reports: Hypertension Respiratory History: Reports: None Gastrointestinal History: Reports: Other (See Below) Other Gastrointestinal History: Gilbert's syndrome Genitourinary History: Reports: None Musculoskeletal History: Reports: Arthritis Other Musculoskeletal History: hx of dislocated shoulder x5 Neurological History: Reports: None Psychiatric History: Reports: None Endocrine/Metabolic History: Reports: Diabetes, Type II, Obesity/BMI 30+ Hematologic History: Reports: None Immunologic History: Reports: None Oncologic (Cancer) History: Reports: None Dermatologic History: Reports: None - Infectious Disease History Infectious Disease History: Reports: Chicken Pox, Measles - Past Surgical History Head Surgeries/Procedures: Reports: None HEENT Surgical History: Reports: None Cardiovascular Surgical History: Reports: None Respiratory Surgical History: Reports: None GI Surgical History: Reports: Cholecystectomy, Hernia, Abdominal Other GI Surgeries/Procedures: Ventral Hernia repair Male Surgical History: Reports: None Endocrine Surgical History: Reports: None Neurological Surgical History: Reports: None Musculoskeletal Surgical History: Reports: Hip Replacement, Other (See Below) Other Musculoskeletal Surgeries/Procedures:: I&D of abscess on shoulder Oncologic Surgical History: Reports: None Dermatological Surgical History: Reports: None Social & Family History - Family History Oncologic: Reports: Breast, Ovarian - Tobacco Use Tobacco Use Status *Q: Never Tobacco User - Caffeine Use Caffeine Use: Reports: Coffee - Recreational Drug Use Recreational Drug Use: No ED ROS GENERAL - Review of Systems Review Of Systems: See Below ED EXAM, GENERAL - Physical Exam Exam: See Below Course - Vital Signs Last Recorded V/S: Last Vital Signs Temp 96.8 F L 11/24/20 22:17 Pulse 112 H 11/24/20 22:47 Resp 16 11/24/20 22:47 BP 123/88 11/24/20 22:47 Pulse Ox 95 11/24/20 22:47 Departure - Departure Time of Disposition: 00:17 Disposition: Home, Self-Care 01 Clinical Impression: COVID-19 virus infection - Discharge Information Instructions: What You Should Know About COVID-19 to Protect Yourself and Others - CDC, 10 Things You Can Do to Manage Your COVID-19 Symptoms at Home - CDC (08/26/2020) Referrals: Arnie Farfan MD [Primary Care Provider] - Additional Instructions: Your seen and evaluated in the ER today secondary to low oxygen level reading at home while you are Covid positive. Fortunately, your oxygen level here is remain between 90 to 96% on room air. Please continue current plan of care and return the ER immediately if any worsening shortness of breath and low oxygen level is noted at home. 1. Your COVID-19 screening is positive. That means you do have the coronavirus and you are considered contagious. Your vital signs and oxygen saturation are well enough that you were able to monitor your symptoms at home. Continue to monitor for trouble breathing, new confusion or inability to arouse, bluish lips or face or any of the other symptoms we discussed -if this occurs please return to the emergency room. 2. Please self quarantine over the next 10 days. Inform any persons that you have been in contact with since you started becoming symptomatic that you have tested positive; they should be made aware and take the appropriate steps as needed. 3. You can take NyQuil during the evening to help get a restful night sleep. May alternate Tylenol and ibuprofen as needed for pain and fever management. 4. The [facility] department will be calling you and following up with you. The [place] COVID 19 Hotline phone number , They are open Saturday - Saturday 7am - 7pm. Follow up with your primary care provider for re-evaluation and re-testing after the 10 day quarantine and discuss when you should be seen. The following information is given to patients seen in the emergency department who are being discharged to home. This information is to outline your options for follow-up care. We provide all patients seen in our emergency department with a follow-up referral. The need for follow-up, as well as the timing and circumstances, are variable depending upon the specifics of your emergency department visit. If you don't have a primary care physician on staff, we will provide you with a referral. We always advise you to contact your personal physician following an emergency department visit to inform them of the circumstance of the visit and for follow-up with them and/or the need for any referrals to a consulting specialist. The emergency department will also refer you to a specialist when appropriate. This referral assures that you have the opportunity for follow-up care with a specialist. All of these measure are taken in an effort to provide you with optimal care, which includes your follow-up. Under all circumstances we always encourage you to contact your private physician who remains a resource for coordinating your care. When calling for follow-up care, please make the office aware that this follow-up is from your recent emergency room visit. If for any reason you are refused follow-up, please contact the [facility] Emergency Department at and asked to speak to the emergency department charge nurse. [facility] [address] [place] [id number] [address] [id number] Sepsis Event Note (ED) - Focused Exam Vital Signs: Vital Signs Temp Pulse Resp BP Pulse Ox 11/24/20 22:47 112 H 16 123/88 95 11/24/20 22:17 96.8 F L 110 H 20 131/72 93 L
[2020-11-25 00:30] VITALS: BP 120/77; PULSE 92
== END 2020-11-25 00:26 | disposition home or self-care (01) ==
LOC: MW.ED 20:16
DX: U07.1 COVID-19 (principal); E11.9 Type 2 diabetes mellitus without complications; E66.9 Obesity, unspecified; Z68.30 Body mass index [BMI] 30.0-30.9, adult; Z88.0 Allergy status to penicillin; Z79.84 Long term (current) use of oral hypoglycemic drugs; Z79.899 Other long term (current) drug therapy
CPT/HCPCS: 71045; 71045-26; 99284-25

== ENCOUNTER 2021-08-29 06:32 | Day surgery (SDC) | payer BC ==
[~2021-08-29 06:32] MED LIST: Lactated Ringers 1,000 ML IV SCH; Sodium Chloride 0.9% 10 ML Syringe FLUSH PRN; Sodium Chloride 0.9% 2.5 ML Syringe FLUSH PRN; Sodium Chloride 0.9% 20 ML SDV IV PRN
[2021-08-29] MEDS ORDERED: fentaNYL 100 MCG/2 ML SDV ONE (07:26)
[2021-08-29] MEDS ORDERED: Propofol 200 MG/20 ML SDV ONE (07:26)
[2021-08-29] MEDS ORDERED: Midazolam 1 MG/ML 2 ML SDV ONE (07:49)
[2021-08-29] MEDS ORDERED: Ketamine 500 mg/10 ML MDV ONE (07:50)
[2021-08-29 08:51] VITALS: BP 103/68; PULSE 83
== END 2021-08-29 09:08 | disposition home or self-care (01) ==
LOC: MW.SDS 06:32
PROVIDERS: ATTEND Surgery
DX: Z12.11 Encounter for screening for malignant neoplasm of colon (principal); K57.30 Diverticulosis of large intestine without perforation or abscess without bleeding; K62.1 Rectal polyp; I10 Essential (primary) hypertension; E11.9 Type 2 diabetes mellitus without complications; E66.01 Morbid (severe) obesity due to excess calories; J45.909 Unspecified asthma, uncomplicated; Z79.899 Other long term (current) drug therapy; Z90.49 Acquired absence of other specified parts of digestive tract; Z88.0 Allergy status to penicillin; Z98.890 Other specified postprocedural states; Z68.39 Body mass index [BMI] 39.0-39.9, adult
CPT/HCPCS: 45380; 82947; J2250; J2704; J3010; J3490; J7120; 00812